=== PATIENT | male | born 1995 | race Caucasian/White ===

== ENCOUNTER 2020-11-28 21:51 | Emergency (ER) | payer OTHER ==
[~2020-11-28 21:51] MED LIST: CLINDAMYCIN HC150 MG PO; HYDROCODON-ACE1 EAC2 PO; IBUPROFEN800 MG PO
[2020-11-29] MEDS ORDERED: ZOFRAN4 MG PO (01:30)
[2020-11-29] MEDS ORDERED: ZITHROMAX250 MG PO (01:30)
[2020-11-29] MEDS ORDERED: MEDROL DOSEPAK 24 MG PO (01:30)
== END 2020-11-29 01:40 | disposition home or self-care (01) ==
LOC: ER1 21:51
DX: U07.1 COVID-19 (principal)
CPT/HCPCS: 0240U; 71045; 87081; 87880; 99284